=== PATIENT | male | born 1960 | race Caucasian/White ===

== ENCOUNTER 2017-07-11 12:08 | Emergency (ER) | payer MEDICAID ==
[~2017-07-11] VITALS: Ht 180.3 cm; Wt 61.7 kg
[~2017-07-11 12:08] MED LIST: CLON-527 PO
[2017-07-11 12:23] VITALS: BP 106/68
== END 2017-07-11 13:09 | disposition home or self-care (01) ==
LOC: ER 12:08
DX: Z00.00 Encounter for general adult medical examination without abnormal findings (principal); J44.9 Chronic obstructive pulmonary disease, unspecified; F12.10 Cannabis abuse, uncomplicated; Z86.19 Personal history of other infectious and parasitic diseases; Z87.820 Personal history of traumatic brain injury; Z59.0 Homelessness; Z56.0 Unemployment, unspecified; Z98.890 Other specified postprocedural states; Z79.899 Other long term (current) drug therapy
CPT/HCPCS: 99281

== ENCOUNTER 2017-07-11 13:47 | Outpatient (CLI) | payer MEDICAID | END 2017-07-11 23:59 | disposition home or self-care (01) | LOC: LAB 13:47 | PROVIDERS: ATTEND Ophthalmology | DX: H35.9 Unspecified retinal disorder (principal); J44.9 Chronic obstructive pulmonary disease, unspecified; F17.200 Nicotine dependence, unspecified, uncomplicated; Z86.19 Personal history of other infectious and parasitic diseases | CPT/HCPCS: 36415; 84132 ==